=== PATIENT | female | born 1990 | race Hispanic/Latino ===

== ENCOUNTER 2017-08-18 19:51 | Emergency (ER) | payer BC, MEDICAID, SELFPAY | END 2017-08-18 22:40 | disposition home or self-care (01) | LOC: ERS 19:51 | DX: H65.91 Unspecified nonsuppurative otitis media, right ear (principal); H69.91 Unspecified Eustachian tube disorder, right ear | CPT/HCPCS: 99283 ==

== ENCOUNTER 2017-12-20 18:16 | Emergency (ER) | payer OTHER, SELFPAY ==
[2017-12-20 19:23] LABS: Bacteria/HPF None Seen HPF (None Seen); Bilirubin Negative (Negative); Blood, Urine Trace (Negative); Clarity CLEAR (Clear); Glucose, Urine (Dipstick) Negative (Negative); Hyaline Casts/LPF 0-3 HYALINE CAST LPF (0-3 Hyaline); Leukocyte Negative (Negative); Nitrite Negative (Negative); Pathc Cast-AUWi Flag 0.87 (0-2.49); Protein, Urine (Dipstick) Negative (Neg-Trace); Specific Gravity, Urine 1.035 (1.002-1.036); Squamous Epithelial 0-3 HPF (0-3); WBC/HPF 0-3 HPF (0-3)
[2017-12-20 19:24] LABS: Pregnancy Test - Urine (BHCG) Negative (Negative); Pregu Control Background? CLEAR/WHITE (CLR/WHITE); Pregu Control Bar Appear? YES (CONTROL BAR); Specific Gravity 1.035 (1.002-1.036)
[2017-12-20] MEDS ORDERED: Ketorolac Tromethamine 30 MG/ML VIAL ONE (19:34)
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
== END 2017-12-20 20:05 | disposition home or self-care (01) ==
LOC: ERS 18:16
DX: M54.2 Cervicalgia (principal); J45.909 Unspecified asthma, uncomplicated
CPT/HCPCS: 72040; 81003; 81015; 81025; 96372; J1885

== ENCOUNTER 2018-08-07 19:13 | Emergency (ER) | payer MEDICAID, OTHER, SELFPAY ==
[2018-08-07] MEDS ORDERED: Metoclopramide HCl 10 MG/2 ML VIAL ONE (19:48)
== END 2018-08-07 21:05 | disposition home or self-care (01) ==
LOC: ERS 19:13
DX: O99.89 Other specified diseases and conditions complicating pregnancy, childbirth and the puerperium (principal); R51 Headache; O99.512 Diseases of the respiratory system complicating pregnancy, second trimester; J45.909 Unspecified asthma, uncomplicated; Z3A.20 20 weeks gestation of pregnancy
CPT/HCPCS: 96365; J2765

== ENCOUNTER 2018-10-11 07:37 | Emergency (ER) | payer OTHER ==
[2018-10-11] MEDS ORDERED: Acetaminophen 500 MG TAB ONE (08:00)
--- NOTE | 2018-10-11 08:40 | RAD ---
SINGLE VIEW CHEST: HISTORY: Cough for three days with chest congestion and soreness that started last night. COMPARISON: 06/12/2014 FINDINGS: Single view of the chest show normal sized cardiomediastinal silhouette. There is no evidence of cons olidation, mass, or pleural effusion. The bones are unremarkable. IMPRESSION: No evidence of acute cardiopulmonary disease. POS: [facility]
== END 2018-10-11 08:25 | disposition home or self-care (01) ==
LOC: ERS 07:37
DX: O99.512 Diseases of the respiratory system complicating pregnancy, second trimester (principal); J20.9 Acute bronchitis, unspecified; Z3A.29 29 weeks gestation of pregnancy
CPT/HCPCS: 71045; 93005

== ENCOUNTER 2018-12-14 10:07 | Inpatient (IN) | payer OTHER ==
[2018-12-14] MEDS ORDERED: HYDROcodone/Acetaminophen 5/325 mg Tablet PO PRN ×2 (10:18)
[2018-12-14] MEDS ORDERED: Promethazine HCl 25 MG/ML VIAL IM PRN ×2 (10:18→15:04)
[2018-12-14] MEDS ORDERED: Acetaminophen 500 MG TAB PO PRN (10:18)
[2018-12-14] MEDS ORDERED: Lidocaine 1% (PF) 30 ML VIAL SC PRN (10:18)
[2018-12-14] MEDS ORDERED: Butorphanol Tartrate 1 MG/ML VIAL SLOW IVP PRN (10:18)
[2018-12-14] MEDS ORDERED: NS / Oxytocin 40 units/1000ml 1,000 ML IV PRN (10:18)
[2018-12-14] MEDS ORDERED: Ondansetron PF 4 MG/2 ML Vial IVP PRN ×2 (10:18→15:04)
[2018-12-14] MEDS ORDERED: Ibuprofen 800 MG TAB PO PRN (10:18)
[2018-12-14] MEDS ORDERED: NS w/ Oxytocin 10 units 500 ML IV SCH ×2 (10:30)
[2018-12-14] MEDS ORDERED: Lactated Ringer's 1,000 ML IV SCH (10:30)
--- NOTE | 2018-12-14 10:32 | PDOC.LDHP ---
Labor and Delivery H&P HPI: 28 y/o at 38 and 5/7 weeks presents c/o of ctx's since she woke up. Cervical exam is 4cm and c/w early labor. Current gestational age (weeks): 38 Due date: 12/23/18 Grav: 4 Para: 2 Current complications: none Current medications: none Previous surgical history: none Social history: none - Physical Exam Vital signs reviewed and normal: yes General: NAD, resting, breathing through contractions Heart: RRR Lungs: nonlabored breathing Abdomen: NTTP Extremeties: no edema FHT: category 1 - Vaginal Exam cm dilated: 4 - Assessment L&D Assessment: term patient in labor - Plan Plan: admit to L&D, labor augmentation if indicated
[2018-12-14 11:08] VITALS: BMI 31.8
[2018-12-14] MEDS ORDERED: NS w/ Oxytocin 10 units 500 ML ONE (11:13)
[2018-12-14 11:38] LABS: Mean Corpuscular HGB CONC 35.5 g/dL (32.0-36.0); Mean Corpuscular Hemoglobin 30.6 pg (27.0-31.0); Mean Corpuscular Volume 86.2 fL (78.0-98.0); Platelet Count 157 thou/uL (130-400); RBC Distribution Width 12.2 % (11.5-14.5); Red Blood Cell (RBC) Count 4.26 mill/uL (4.20-5.40); White Blood Cell (WBC) Count 9.1 thou/uL (4.8-10.8)
[2018-12-14 12:18] LABS: Syphilis Antibody Nonreactive (Nonreactive); Syphilis Antibody Index 0.03 S/CO (<1.00 Non-Reactive)
[2018-12-14 12:22] LABS: HBSAg Index 0.26 S/CO (0-0.99); Hep B Surf Ag Non-Reactive S/CO (NonReactive)
[2018-12-14] MEDS ORDERED: Fentanyl 4 mcg/Bup 0.1% Cadd 100 ML ONE (13:58)
[2018-12-14] MEDS ORDERED: Fentanyl 100 MCG/2 ML VIAL ONE (14:07)
[2018-12-14] MEDS ORDERED: Fentanyl 100 MCG/2 ML VIAL EPIDURAL ONE (14:10)
[2018-12-14] MEDS ORDERED: Bupivacaine 0.25% HCL 30 ML VIAL ONE (15:00)
[2018-12-14] MEDS ORDERED: Acetaminophen 325 MG TAB PO PRN (15:04)
[2018-12-14] MEDS ORDERED: Lactated Ringer's 500 ML IV PRN (15:04)
[2018-12-14] MEDS ORDERED: diphenhydrAMINE 50 MG/ML VIAL IVP PRN (15:04)
[2018-12-14] MEDS ORDERED: Naloxone HCl 0.4 mg/ml Vial IVP PRN ×2 (15:04)
[2018-12-14] MEDS ORDERED: ePHEDrine/0.9% NaCl/PF SYRINGE 50 mg/10 ml SLOW IVP PRN (15:04)
[2018-12-14] MEDS ORDERED: Communication Order-Pharmacy FS SCH (15:15)
[2018-12-14] MEDS ORDERED: Fentanyl 4 mcg/Bupivacaine 0.1% Cassette 100 ML EPIDURAL SCH (15:15)
[2018-12-15] MEDS ORDERED: Ferrous Sulfate 325 MG TAB PO SCH (08:00)
[2018-12-15] MEDS ORDERED: Ibuprofen 800 MG TAB PO PRN (08:31)
[2018-12-15] MEDS ORDERED: HYDROcodone/Acetaminophen 5/325 mg Tablet PO PRN ×3 (08:32→09:38)
[2018-12-15] MEDS ORDERED: Docusate Calcium (SURFAK) 240 MG CAP PO SCH (09:00)
[2018-12-15] MEDS ORDERED: Prenatal Vitamin 1 TAB PO SCH (09:00)
[2018-12-15] MEDS ORDERED: Varicella virus, LIVE 0.5 ML VIAL SC ONE (09:38)
[2018-12-15] MEDS ORDERED: Ondansetron PF 4 MG/2 ML Vial IVP PRN (09:38)
[2018-12-15] MEDS ORDERED: NS / Oxytocin 40 units/1000ml 1,000 ML IV SCH (09:38)
[2018-12-15] MEDS ORDERED: Methylergonovine 0.2 MG/ML VIAL IM PRN (09:38)
[2018-12-15] MEDS ORDERED: Benzocaine-Menthol 82.5 ML CAN TOP PRN (09:38)
[2018-12-15] MEDS ORDERED: Zolpidem Tartrate 5 MG TAB PO PRN (09:38)
[2018-12-15] MEDS ORDERED: hydrALAZINE 20 MG/ML VIAL SLOW IVP PRN (09:38)
[2018-12-15] MEDS ORDERED: Promethazine HCl 25 MG/ML VIAL IM PRN (09:38)
[2018-12-15] MEDS ORDERED: Adacel (T-DAP) 0.5 ML SYRINGE IM ONE (09:38)
[2018-12-15] MEDS ORDERED: Milk Of Magnesia 30 ML UDCUP PO PRN (09:38)
[2018-12-15] MEDS ORDERED: Bisacodyl 10 MG SUPP PR PRN (09:38)
[2018-12-15] MEDS ORDERED: Misoprostol 200 MCG TAB VAG PRN (09:38)
[2018-12-15] MEDS ORDERED: diphenhydrAMINE 25 MG CAP PO PRN (09:38)
[2018-12-15] MEDS ORDERED: Measles/Mumps/Rubella 10 MCG/0.5 ML VIAL SC ONE (09:38)
[2018-12-15] MEDS ORDERED: Lanolin Ointment 7 GM TUBE TOP PRN (09:38)
[2018-12-15] MEDS ORDERED: Preparation H Ointment 28 GM TUBE PR PRN (09:38)
[2018-12-15] MEDS: Ibuprofen 800 MG TAB PO SCH ×2 (12:01→19:38)
[2018-12-15 17:40] VITALS: BP 115/68; TEMP 97.9
--- NOTE | 2018-12-15 18:02 | PDOC.PP ---
Post Progress Note Post Day #: 1 PO intake tolerated: yes Flatus: yes Ambulation: yes Vital Signs (12 hours) Temp Pulse Resp BP Pulse Ox 12/15/18 17:15 97.9 F 67 16 115/68 12/15/18 12:09 97.7 F 71 20 103/61 12/15/18 07:45 97.9 F 65 20 98/59 L 99 Weight Weight 163 lb - Physical Examination General: NAD Cardiovascular: no m/r/g, RRR Respiratory: clear to auscultation bilaterally Abdominal: + bowel sounds, lochia Extremities: negative homans (B) Neurological: no gross focal deficits Psychiatric: A&Ox3, normal affect (DC to home) Result Diagrams: 12/14/18 10:48 Additional Labs: Post Labs Blood Type O POSITIVE 12/14/18 10:47 Hep Bs Antigen Non-Reactive S/CO (NonReactive) 12/14/18 10:47
--- NOTE | 2018-12-16 01:52 | DN ---
DATE OF PROCEDURE: 12/14/2018 TIME OF SERVICE: At 1741, [place] Daylight Savings Time. PREOPERATIVE DIAGNOSIS: Intrauterine at 38 weeks 5 days with spontaneous onset of labor. POSTOPERATIVE DIAGNOSIS: Intrauterine at 38 weeks 5 days with spontaneous onset of labor. PROCEDURES: Spontaneous vaginal delivery over a small second-degree midline episiotomy. FINDINGS: Viable male infant, weighing 3498 g or 7 pounds 11 ounces, Apgars of nine and nine. QUANTITATIVE BLOOD LOSS: 117 g. COMPLICATIONS: None. PROCEDURE IN DETAIL: The patient presented to [facility] where she was admitted to the labor and delivery service. The patient underwent a normal and uneventful labor with normal cervical dilatation until she was found to be completely dilated. She was then allowed to push and was able to bring the baby down and delivered the baby in a vertex presentation without difficulties. Once the head delivered in occiput anterior position, the shoulders followed spontaneously along with the rest of the baby's body. Once out the baby's mouth and nose were bulb suctioned. The cord was clamped and cut and baby was handed to waiting attendants. Cord blood was collected. Gentle fundal massage was performed and the placenta delivered intact without problems. Hemostasis was assured. Quantitative blood loss was calculated. Inspection of the cervix, vaginal vault, and perineum did not reveal any lacerations needing suturing. Once again, hemostasis was within normal limits and the patient was allowed to recover in the labor and delivery room. Baby went to nursery. Job ID: [id number]
== END 2018-12-15 19:40 | disposition home or self-care (01) | DRG 807 ==
LOC: L&D 10:07 → 3SW 21:00
PROVIDERS: ADMIT Obstetrics & Gynecology; ATTEND Obstetrics & Gynecology
PROC: 10E0XZZ Delivery of Products of Conception, External Approach (ICD-10-PCS; principal; 2018-12-14)
PROC: 0W8NXZZ Division of Female Perineum, External Approach (ICD-10-PCS; 2018-12-14)
DX: O80 Encounter for full-term uncomplicated delivery (principal); Z37.0 Single live birth; Z3A.38 38 weeks gestation of pregnancy
CPT/HCPCS: 36415; 51702; 85027; 86780; 86850; 86900; 86901; 87340; J2590; J3010; S0020

== ENCOUNTER 2021-04-06 15:44 | Emergency (ER) | payer MEDICAID, OTHER, SELFPAY ==
[2021-04-06] MEDS ORDERED: Lidocaine 1% PF 5 ML VIAL ONE (17:16)
[2021-04-06] MEDS ORDERED: Boostrix 0.5 ML (Tdap) VIAL ONE ×2 (17:52→18:33)
== END 2021-04-06 18:48 | disposition home or self-care (01) ==
LOC: ERS 15:44
DX: S01.511A Laceration without foreign body of lip, initial encounter (principal); W22.8XXA Striking against or struck by other objects, initial encounter; J45.909 Unspecified asthma, uncomplicated
CPT/HCPCS: 12011; 90471; 90715